=== PATIENT | female | born 1940 | race Caucasian/White ===

== ENCOUNTER → 2016-07-12 | Outpatient (CLI) | payer OTHER ==
[~2016-07-12] MED LIST: ASPI-515 PO; ENOX40SY4 SQ; ESCI20TA10 PO; OXYC5CAP4 PO
== END | disposition home or self-care (01) ==
LOC: CFH 08:20
PROVIDERS: ATTEND Nurse Practitioner Family
DX: Z13.820 Encounter for screening for osteoporosis (principal); M81.0 Age-related osteoporosis without current pathological fracture
CPT/HCPCS: 77080

== ENCOUNTER → 2020-06-15 | Outpatient (CLI) | payer MEDICARE ==
[~2020-06-15] MED LIST changes: +AMLO-210 PO; -ASPI-515 PO; +ASPI-963 PO; +LOSA25TA12 PO; +METF-734 PO; +OXYC5CAP2 PO; -OXYC5CAP4 PO; +PRED20TA PO; +ROSU5TAB12 PO
== END | disposition home or self-care (01) ==
LOC: CFH 10:27
PROVIDERS: ATTEND Internal Medicine
DX: R91.1 Solitary pulmonary nodule (principal); J44.9 Chronic obstructive pulmonary disease, unspecified
CPT/HCPCS: 71250

== ENCOUNTER 2020-11-27 10:48 | Outpatient (CLI) | payer MEDICARE | END 2020-11-27 23:59 | disposition home or self-care (01) | LOC: CFH 10:48 | PROVIDERS: ATTEND Internal Medicine | DX: J98.4 Other disorders of lung (principal); R91.8 Other nonspecific abnormal finding of lung field | CPT/HCPCS: 71250 ==